=== PATIENT | male | born 1990 | race Caucasian/White ===

== ENCOUNTER 2023-11-28 20:27 | Emergency (ER) | payer OTHER, SELFPAY ==
[2023-11-28 20:32] VITALS: BP 152/90; PULSE 117; TEMP 36.8; O2SAT 98; BMI 19.7
--- NOTE | 2023-11-28 20:38 | XR_ITS ---
The [address] [address] Patient Name: ABI GOLDMAN MRN: [id number] date: 1990 Sex: M Assigned Patient Location: ER Current Patient Location: ER Accession/Order Number: [id number] Exam Date: 11/28/2023 20:52 Report Date: 11/28/2023 21:07 At the request of: ALEJANDRO DELGADO Procedure: XR abdomen min 2V EXAM: XR abdomen min 2V TECHNIQUE: Supine and upright views of the abdomen HISTORY: constipation COMPARISON: None. FINDINGS: No bowel obstruction. Moderate retained stool within right hemicolon. Phleboliths in the pelvis. XR/XR abdomen min 2V IMPRESSION: Moderate retained stool within the right hemicolon. Electronically authenticated by: ELIEZER ORTEGA Date: 11/28/2023 21:07
--- NOTE | 2023-11-28 20:38 | ED_ITS ---
HPI HPI - General Adult General Chief complaint: Abdominal Pain Stated complaint: Constipation Time Seen by Provider: 11/28/23 20:34 Source: patient Mode of arrival: walk-in Limitations: no limitations History of Present Illness HPI narrative: patient presents to the ER concerned he may have constipation. States last Normal BM yesterday. Feels bloated and that he has to go but is not able to. Also feels a little nauseated. No diarrhea. No fever. Denies taking any medications Related Data Allergies Allergy/AdvReac Type Severity Reaction Status Date / Time No Known Drug Allergies Allergy Verified 11/28/23 20:35 Opioid HPI Opioid Management Most Recent Opioid Data: No Data to Display Review of Systems ROS Status of ROS 10 or more systems reviewed and unremark able except as noted in history and below Exam Constitutional Vital Signs, click to edit/add: Last Vital Signs Temp 98.2 F 11/28/23 20:32 Pulse 117 H 11/28/23 20:32 Resp 18 11/28/23 20:32 BP 152/90 H 11/28/23 20:32 Pulse Ox 98 11/28/23 20:32 O2 Del Method Room Air 11/28/23 20:32 Common normals: no apparent distress, average body habitus and oriented x3 HENMT Common normals: normocephalic and head/scalp atraumatic Eye Common normals: PERRL and EOMs intact bilaterally Respiratory Common normals: normal respiratory effort, no retractions and no use of accessory muscles Cardio Common normals: regular rate, regular rhythm, S1 normal heart sound and S2 normal heart sound GI Common normals: Normal to inspection, nondistended, normoactive bowel sounds present, soft to palpation and non-tender Extremity Common normals: normal to inspection Neuro Common normals: oriented x3, CN's II-XII intact bilaterally, moves all extremities and no focal motor deficits Psych Appearance: grossly normal Course Vital Signs Vital signs: Vital Signs Temperature 98.2 F 11/28/23 20:32 Pulse Rate 117 H 11/28/23 20:32 Respiratory Rate 18 11/28/23 20:32 Blood Pressure 152/90 H 11/28/23 20:32 Pulse Oximetry 98 11/28/23 20:32 Oxygen Delivery Method Room Air 11/28/23 20:32 Temperature 98.2 F 11/28/23 20:32 Pulse Rate 117 H 11/28/23 20:32 Respiratory Rate 18 11/28/23 20:32 Blood Pressure 152/90 H 11/28/23 20:32 Pulse Oximetry 98 11/28/23 20:32 Oxygen Delivery Method Room Air 11/28/23 20:32 Medical Decision Making MDM Narrative Medical decision making narrative: patient presents with sensation of constipation. feels like he needs to have a BM but not successful despite taking stool softener. Exam of abdomen unremarkable. Labs acceptable. xray of abdomen with increase stool burden right hemicolon. Patient informed of findings. Not exactly certain why he has this sensation. Provided magnesium citrate to help clean him out and then he can follow up with his doctor for re evaluation Lab Data Labs: Lab Results 11/28/23 Range/Units 20:48 WBC 11.1 H (4.0-11.0) 10^3/uL RBC 5.13 (4.70-6.10) 10^6/uL Hgb 14.6 (14.0-18.0) g/dL Hct 44.8 (42.0-54.0) % MCV 87.3 (80.0-94.0) fL MCH 28.5 (25.9-34.0) pg MCHC 32.6 (29.9-35.2) g/dL RDW 13.2 (11.0-15.0) % Plt Count 274 (150-450) 10^3/uL MPV 9.4 L (9.5-13.5) fL Neut % (Auto) 51.6 (43.0-75.0) % Lymph % (Auto) 40.8 (20.5-60.0) % [place] % (Auto) 6.5 (1.7-12.0) % Eos % (Auto) 0.3 L (0.9-7.0) % Baso % (Auto) 0.5 (0.2-2.0) % Neut # (Auto) 5.7 (1.4-6.5) 10^3/uL Lymph # (Auto) 4.5 H (1.2-3.8) 10^3/uL [place] # (Auto) 0.7 (0.3-0.8) 10^3/uL Eos # (Auto) 0.0 (0.0-0.7) 10^3/uL Baso # (Auto) 0.1 (0.0-0.1) 10^3/uL Abs Immat Gran (auto) 0.03 (0.00-0.03) 10^3/uL Imm/Tot Granulo (auto) 0.3 (0.0-0.5) % Sodium 144 (136-145) mmol/L Potassium 3.6 (3.5-5.1) mmol/L Chloride 103 (98-107) mmol/L Carbon Dioxide 33.0 H (21.0-32.0) mmol/L Anion Gap 11.6 BUN 10.0 (7.0-18.0) mg/dL Creatinine 0.94 (0.70-1.30) mg/dL Est GFR ( Amer) >60 (>=60) Est GFR (Non-Af Amer) >60 (>=60) BUN/Creatinine Ratio 10.6 Glucose 101 (74-106) mg/dL Calcium 9.1 (8.5-10.1) mg/dL Imaging Data Abdominal x-ray: Radiologist's impression: ITS Impressions Abdomen X-Ray 11/28/23 20:38 IMPRESSION: Moderate retained stool within the right hemicolon. Electronically authenticated by: ELIEZER ORTEGA Date: 11/28/2023 21:07 Discharge Plan Discharge Stand Alone Forms: Portal Instructions Chief Complaint: Abdominal Pain Clinical Impression: Constipation Patient Disposition: Home, Self-Care Print Language: Haitian Instructions: Constipation (ED) Referrals: Physician,Non-Staff, MD [Primary Care Provider] - 1 week
[2023-11-28 20:58] LABS: Basophils Absolute Auto 0.1 10^3/uL (0.0-0.1); Basophils Percent Auto 0.5 % (0.2-2.0); Eosinophils Percent Auto 0.3 % (0.9-7.0); Hematocrit 44.8 % (42.0-54.0); Hemoglobin 14.6 g/dL (14.0-18.0); Immature Granulocytes Abs Auto 0.03 10^3/uL (0.00-0.03); Immature Granulocytes Pct Auto 0.3 % (0.0-0.5); Lymphocytes Absolute Auto 4.5 10^3/uL (1.2-3.8); Lymphocytes Percent Auto 40.8 % (20.5-60.0); Mean Corpuscular HGB Conc 32.6 g/dL (29.9-35.2); Mean Corpuscular Hemoglobin 28.5 pg (25.9-34.0); Mean Corpuscular Volume 87.3 fL (80.0-94.0); Mean Platelet Volume 9.4 fL (9.5-13.5); Monocytes Absolute Auto 0.7 10^3/uL (0.3-0.8); Monocytes Percent Auto 6.5 % (1.7-12.0); Neutrophils Absolute Auto 5.7 10^3/uL (1.4-6.5); Neutrophils Percent Auto 51.6 % (43.0-75.0); Platelet Count 274 10^3/uL (150-450); Red Blood Count 5.13 10^6/uL (4.70-6.10); Red Cell Distribution Width 13.2 % (11.0-15.0); White Blood Count 11.1 10^3/uL (4.0-11.0)
[2023-11-28 21:05] LABS: Anion Gap 11.6; BUN Creatinine Ratio 10.6; Calcium 9.1 mg/dL (8.5-10.1); Chloride 103 mmol/L (98-107); Estimated GFR (African America >60 (>=60); Estimated GFR (Non-African Ame >60 (>=60); Glucose 101 mg/dL (74-106); Potassium 3.6 mmol/L (3.5-5.1); Sodium 144 mmol/L (136-145)
[2023-11-28] MEDS: MAGNESIUM CITRATE 296 ML SOLUTION PO (21:39)
== END 2023-11-28 21:51 | disposition home or self-care (01) ==
PROVIDERS: Emergency Provider Internal Medicine
DX: K59.00 Constipation, unspecified (principal)
CPT/HCPCS: 36415; 74019; 80048; 85025; 99284

== ENCOUNTER 2023-12-17 18:52 | Emergency (ER) | payer OTHER, SELFPAY ==
[2023-12-17 18:54] VITALS: BP 135/76; PULSE 94; TEMP 36.8; O2SAT 99; BMI 18.8
--- NOTE | 2023-12-17 19:39 | ED_ITS ---
HPI - Ear Problem General Chief complaint: Ear Stated complaint: EAR PAIN Time Seen by Provider: 12/17/23 19:35 Source: patient Mode of arrival: walk-in History of Present Illness HPI Narrative: presents complaining of left ear discomfort for the past week. No dizziness or headache. States it is bothering him Complaint: Reports ear pain Related Data Allergies Allergy/AdvReac Type Severity Reaction Status Date / Time No Known Drug Allergies Allergy Verified 11/28/23 20:35 Review of Systems ROS Status of ROS 10 or more systems reviewed and unremark able except as noted in history and below Exam Constitutional Vital Signs, click to edit/add: Last Vital Signs Temp 98.2 F 12/17/23 18:54 Pulse 94 H 12/17/23 18:54 Resp 16 12/17/23 18:54 BP 135/76 12/17/23 18:54 Pulse Ox 99 12/17/23 18:54 O2 Del Method Room Air 12/17/23 18:54 Common normals: no apparent distress, average body habitus, oriented x3, no limitations, healthy appearing, alert and well nourished [facility] Common normals: normocephalic and head/scalp atraumatic Other: left TM clear. At entry of left ear canal he has a focal erythematous papular lesion 2mm that is tender(pimple in size) no swelling of the canal Eye Common normals: EOMs intact bilaterally Respiratory Common normals: normal respiratory effort, no retractions, no use of accessory muscles and clear to auscultation bilaterally Cardio Common normals: regular rate, regular rhythm, S1 normal heart sound and S2 normal heart sound Extremity Common normals: normal to inspection and full ROM Neuro Common normals: oriented x3, CN's II-XII intact bilaterally and moves all extremities Psych Appearance: grossly normal Course Vital Signs Vital signs: Vital Signs Temperature 98.2 F 12/17/23 18:54 Pulse Rate 94 H 12/17/23 18:54 Respiratory Rate 16 12/17/23 18:54 Blood Pressure 135/76 12/17/23 18:54 Pulse Oximetry 99 12/17/23 18:54 Oxygen Delivery Method Room Air 12/17/23 18:54 Temperature 98.2 F 12/17/23 18:54 Pulse Rate 94 H 12/17/23 18:54 Respiratory Rate 16 12/17/23 18:54 Blood Pressure 135/76 12/17/23 18:54 Pulse Oximetry 99 12/17/23 18:54 Oxygen Delivery Method Room Air 12/17/23 18:54 Medical Decision Making MDM Narrative Medical decision making narrative: presents with left ear pain. Found to have a tender erythematous pimple type lesion at the entry of the canal that is tender. Remaining of canal unremarkable. Patient advised of the finding. Given first dose of antibiotic and discharged home Discharge Plan Discharge Stand Alone Forms: Portal Instructions Chief Complaint: Ear Clinical Impression: Left otitis externa Patient Disposition: Home, Self-Care Print Language: Upper Sorbian Instructions: Earache (ED) Additional Instructions: follow up with your doctor in one week for recheck Referrals: Physician,Non-Staff, MD [Primary Care Provider] - 1 week
[2023-12-17] MEDS: CEPHALEXIN 500 MG CAPSULE 1000 MG PO (19:47)
== END 2023-12-17 19:58 | disposition home or self-care (01) ==
PROVIDERS: Emergency Provider Internal Medicine
DX: H60.92 Unspecified otitis externa, left ear (principal)
CPT/HCPCS: 99283

== ENCOUNTER 2024-01-29 16:22 | Emergency (ER) | payer OTHER, SELFPAY ==
[2024-01-29 16:47] VITALS: BP 103/64; PULSE 86; TEMP 36.7; O2SAT 99; BMI 19.7
--- NOTE | 2024-01-29 20:39 | ED_ITS ---
HPI - Ear Problem General Chief complaint: Ear Stated complaint: EAR ABCESS, LOSS OF HEARING Time Seen by Provider: 01/29/24 18:36 Source: patient Mode of arrival: walk-in Limitations: no limitations History of Present Illness HPI Narrative: 33-year-old male presents to the emergency department with complaint of left ear pain. Has been having pain for about a month. Was evaluated in this emergency department and was told he had, a pimple, to the inside of his ear. He was started on oral antibiotics. He is finished the antibiotics and feels like the pain and swelling have been returning. Has had some intermittent hearing loss. Denies any radiation of the pain, fever, chills, upper respiratory infection- like symptoms. Quality:?As above Severity:?Mild Timing:?1 month Context: Normal setting and activity? Modifying factors:?As above Associated symptoms: None Related Data Previous Rx's ?Medication ?Instructions ?Recorded acetic acid 2 % ear solution 4 drp otic (ear) TID #15 mL 01/29/24 Allergies Allergy/AdvReac Type Severity Reaction Status Date / Time No Known Drug Allergies Allergy Verified 01/29/24 16:46 Review of Systems ROS Narrative Constitutional: Denies fever, chills, fatigue HENT: + ear pain. Denies congestion, rhinorrhea, sneezing, sore throat, diff swallowing, voice change Eyes: Denies discharge, eye redness Respiratory: Denies cough, shortness of breath Cardiovascular: Denies chest pain, palpitations Exam Narrative Exam Narrative: Vital signs noted Nurses notes reviewed CONST:? Nontoxic, well appearing, well nourished, in no distress.? HENT: normocephalic, atraumatic.? Normal hearing.? + inferior swelling to the left canal. No appreciable discoloration, pointing. Normal appearing ext ears, TM's.? No nasal discharge.? Moist mucous membranes, no increased oropharyngeal erythema, edema, exudate.? No trismus, maintaining own secretions. EYES: No injection, discharge NECK: supple, no lymphadenopathy CV: normal rate, regular rhythm, no murmur RESP: normal effort, speaking in complete sentences. Lung sounds clear and equal bilat.? No wheezes, rales, rhonchi? NEURO: A&Ox3, steady gait, normal station SKIN: intact, warm, dry, no pallor PSYCHIATRIC: normal mood, affect Constitutional Vital Signs, click to edit/add: Last Vital Signs Temp 98.1 F 01/29/24 16:47 Pulse 86 01/29/24 16:47 Resp 18 01/29/24 16:47 BP 103/64 01/29/24 16:47 Pulse Ox 99 01/29/24 16:47 O2 Del Method Room Air 01/29/24 16:47 Course Vital Signs Vital signs: Vital Signs Temperature 98.1 F 01/29/24 16:47 Pulse Rate 86 01/29/24 16:47 Respiratory Rate 18 01/29/24 16:47 Blood Pressure 103/64 01/29/24 16:47 Pulse Oximetry 99 01/29/24 16:47 Oxygen Delivery Method Room Air 01/29/24 16:47 Temperature 98.1 F 01/29/24 16:47 Pulse Rate 86 01/29/24 16:47 Respiratory Rate 18 01/29/24 16:47 Blood Pressure 103/64 01/29/24 16:47 Pulse Oximetry 99 01/29/24 16:47 Oxygen Delivery Method Room Air 01/29/24 16:47 Medical Decision Making MDM Narrative Medical decision making narrative: This is a pleasant 33-year-old male presented the emergency department for evaluation of left ear pain. On arrival, afebrile, vital signs are stable. On exam, nontoxic, well-appearing patient in no distress. On evaluation of the left ear, he has some notable inferior swelling to the canal. No discoloration, pointing noted. There is some associated tenderness on exam with this. No abnormalities of the TM, external ear noted. No other remarkable findings on HEENT exam. Heart regular rate and rhythm. Lung sounds clear and equal bilaterally. Favor swelling to the canal, rule out otitis externa Otitis media less likely history and physical exam Uncertain exact etiology of his condition. There is notable swelling. However, within the limitations of the emergency department, cannot further explore the ear and the swelling. Recommend antibiotic drops and close follow-up with bungy jump master Disposition ? The patient was discharged. Plan: Patient will be discharged to home. Condition at time of disposition: stable Prescription for acetic acid drops otic sent to his pharmacy Advised to follow up with referral provider. Name and address and phone number placed on discharge paperwork. Advised to return for any worsening and/or development of new, concerning signs or symptoms PLEASE NOTE: Portions of the medical record may have been produced using electronic system support developer and may contain errors with respect to translation of words which may not have been identified prior to finalization of the chart. Medical Records Medical records reviewed: Yes I reviewed the patient's medical records Discharge Plan Discharge Stand Alone Forms: Portal Instructions Chief Complaint: Ear Clinical Impression: Acute pain of left ear Left otitis externa Qualifiers: Otitis externa type: unspecified type Chronicity: acute Qualified Code(s): H60.502 - Unspecified acute noninfective otitis externa, left ear Patient Disposition: Home, Self-Care Time of Disposition Decision: 19:14 Condition: Good Mode of Transportation: Private Vehicle Prescriptions / Home Meds: New acetic acid 2 % solution 4 drp otic (ear) TID Qty: 15 0RF Print Language: Nepali Instructions: [place]lucho Ear (ED) Referrals: Delphine Mullen MD [Physician] - 01/31/24 Discharge Date/Time: 01/29/24 19:39
== END 2024-01-29 19:39 | disposition home or self-care (01) ==
PROVIDERS: Emergency Provider Emergency Medicine Emergency Medical Services
DX: H92.02 Otalgia, left ear (principal); H60.502 Unspecified acute noninfective otitis externa, left ear
CPT/HCPCS: 99283